=== PATIENT | female | born 1980 ===

== ENCOUNTER 2016-12-22 07:40 | Emergency (ER) | payer BC, MEDICAID, OTHER ==
[2016-12-22] MEDS ORDERED: Albuterol-Ipratrop 3 mg / 0.5 (3 ml) UD ONE (07:52)
[2016-12-22] MEDS ORDERED: Albuterol-Ipratrop 3 mg / 0.5 (3 ml) UD INH STA ×2 (08:12→08:13)
[2016-12-22] MEDS ORDERED: Albuterol-Ipratrop 3 mg / 0.5 (3 ml) UD IH STA (08:12)
[2016-12-22] MEDS ORDERED: Sodium Chloride 0.9% 500 ML IV STA (08:12)
--- NOTE | 2016-12-22 09:04 | ED PDOC ---
HPI: SOB/CHF/COPD Time Seen by Provider: 12/22/16 08:05 Chief Complaint (Nursing): Shortness Of Breath Chief Complaint (Provider): Shortness Of Breath History Per: Patient History/Exam Limitations: no limitations Onset/Duration Of Symptoms: Days Current Symptoms Are (Timing): Still Present Initiating Event: Upper Respiratory Illness Quality: Tightness, "Pain" Exacerbating Factor(s): Coughing Current Respiratory Medications: See Home Med List Severity: Mild Associated Symptoms: denies: Fever, Productive Cough, Light-headedness Additional Complaint(s): Patient is a 36 year old female with a history of asthma, presents to ED for evaluation of SOB with chest pain and back pain for 3 days. Patient reports her cough is productive of brown sputum, using inhaler at home without relief. Patient denies fever, runny nose, congestion or sore throat. Chest pain is like her asthma. No abd pain, nausea, vomit. No headaches, dizziness. No weakness. No leg pain. No hormone tx. No long distance travel. PMD: Dr. Dey. Past Medical History Reviewed: Historical Data, Nursing Documentation, Vital Signs Vital Signs: Last Vital Signs Temp Pulse Resp 20 12/22/16 09:11 BP Pulse Ox 98 12/22/16 09:12 - Medical History PMH: Asthma - Surgical History Surgical History: No Surg Hx - Family History Family History: States: Unknown Family Hx - Living Arrangements Living Arrangements: With Family - Social History Current smoker - smoking cessation education provided: No Alcohol: None Drugs: Denies - Home Medications Home Medications: Ambulatory Orders Medication Instructions Recorded Ibuprofen [Motrin] 600 mg PO Q8 PRN #21 tab 07/27/14 Penicillin V Potassium [Pen-Vee K] 500 mg PO QID #40 tab 07/27/14 Albuterol 0.09 mg IH Q6 PRN #0 ml 10/13/14 Methylprednisolone [Medrol Dose 4 mg PO ASDIR #21 mg 10/13/14 Pack (21 tabs)] Albuterol Sulfate [Proair Hfa] 0.09 mg IH Q6H PRN #2 inh 12/22/16 predniSONE [predniSONE Tab] 20 mg PO BID 5 Days 12/22/16 - Allergies Allergies/Adverse Reactions: Allergies Allergy/AdvReac Type Severity Reaction Status Date / Time No Known Allergies Allergy Verified 01/09/15 18:26 Review of Systems ROS Statement: Except As Marked, All Systems Reviewed And Found Negative Constitutional: Negative for: Fever, Chills Cardiovascular: Positive for: Chest Pain. Negative for: Palpitations, Light Headedness Respiratory: Positive for: Cough, Shortness of Breath, Wheezing Gastrointestinal: Negative for: Nausea, Vomiting Musculoskeletal: Positive for: Back Pain. Negative for: Neck Pain Skin: Negative for: Rash Neurological: Negative for: Weakness, Numbness Physical Exam - Reviewed Nursing Documentation Reviewed: Yes Vital Signs Reviewed: Yes - Physical Exam Appears: Positive for: Non-toxic, Uncomfortable Skin: Positive for: Normal Color, Warm Eye Exam: Positive for: Normal appearance ENT: Positive for: Nasal Congestion. Negative for: Pharyngeal Erythema Neck: Positive for: Normal, Painless ROM, Supple Cardiovascular/Chest: Positive for: Regular Rate, Rhythm. Negative for: Murmur Respiratory: Positive for: Wheezing (diffuse). Negative for: Rales, Rhonchi, Respiratory Distress Back: Positive for: Normal Inspection. Negative for: L CVA Tenderness, R CVA Tenderness Extremity: Positive for: Normal ROM. Negative for: Tenderness, Pedal Edema Neurologic/Psych: Positive for: Alert, Oriented - ECG ECG: Positive for: Interpreted By Me, Viewed By Me ECG Rhythm: Positive for: Normal QRS, Normal ST Segment, Sinus Rhythm O2 Sat by Pulse Oximetry: 98 (RA) Pulse Ox Interpretation: Normal - Radiology X-Ray: Interpreted by Me, Viewed By Me X-Ray Interpretation: No Acute Disease - Progress ED Course And Treament: 915: Stable. AAOx3. Pain free. Tolerated PO. FU with pcp. Texting on phone. In no distress. Wheezes gone. Likely asthma flare. Medical Decision Making Medical Decision Making: Time: 804 Initial impression: Asthma exacerbation Initial plan: -- EKG -- CXR -- Duoneb x3, Solumedrol and NSF Scribe Attestation: Documented by Lexus Alvarez acting as a scribe for Brigido Monroe MD MD Scribe Attestation: All medical record entries made by the Scribe were at my direction and personally dictated by me. I have reviewed the chart and agree that the record accurately reflects my personal performance of the history, physical exam, medical decision making, and the department course for this patient. I have also personally directed, reviewed, and agree with the discharge instructions and disposition. Disposition - Clinical Impression Clinical Impression: Asthma attack - Patient ED Disposition Is Patient to be Admitted: No - Disposition Referrals: [facility] [Outside] - 12/23/16 Disposition: Routine/Home Disposition Time: 09:16 Condition: STABLE Additional Instructions: Return if not better in 3 days. Prescriptions: Albuterol Sulfate [Proair Hfa] 0.09 mg IH Q6H PRN #2 inh PRN Reason: Wheezing predniSONE [predniSONE Tab] 20 mg PO BID 5 Days Instructions: Asthma (ED) Forms: [facility] ([employer]) Print Language: DIVEHI
[2016-12-22 09:28] VITALS: PULSE 99; RESP 24; TEMP 98.6; O2SAT 99
--- NOTE | 2016-12-22 13:25 | RAD ---
HISTORY: dyspnea COMPARISON: 10/13/2014. FINDINGS: LUNGS: No active pulmonary disease. PLEURA: No significant pleural effusion identified, no pneumothorax apparent. CARDIOVASCULAR: No radiographic findings to suggest acute or significant cardiovascular disease. OSSEOUS STRUCTURES: No significant abnormalities. VISUALIZED UPPER ABDOMEN: Normal. OTHER FINDINGS: None. IMPRESSION: No active disease. No significant interval change compared to the prior examination(s). Concordant results with the preliminary interpretation rendered by the emergency department physician procedure.
--- NOTE | 2016-12-22 16:59 | CARD ---
APPROVED REPORT EKG Measurement Heart [id number] <Conclusion> Normal sinus rhythm Normal ECG
== END 2016-12-22 09:28 | disposition home or self-care (01) ==
LOC: H.ER 07:40
DX: J45.901 Unspecified asthma with (acute) exacerbation (principal); R06.00 Dyspnea, unspecified

== ENCOUNTER 2017-01-04 06:39 | Emergency (ER) | payer MEDICAID, BC ==
[2017-01-04] MEDS ORDERED: Albuterol-Ipratrop 3 mg / 0.5 (3 ml) UD ONE (07:30)
[2017-01-04] MEDS ORDERED: Albuterol-Ipratrop 3 mg / 0.5 (3 ml) UD IH STA (07:31)
--- NOTE | 2017-01-04 07:37 | ED PDOC ---
HPI: CCC, URI, Sore Throat Time Seen by Provider: 01/04/17 07:26 Chief Complaint (Nursing): Shortness Of Breath Chief Complaint (Provider): cough History Per: Patient History/Exam Limitations: no limitations Have you had recent travel within the past 21 days to any of the following countries: [place], [place], [place] or [place]?: No Onset/Duration Of Symptoms: Days (x 2 weeks ) Additional Complaint(s): Carmen Simental is a 36 year old female, with a previous medical history of asthma, who presents to the ED with complaints of a cough associated with yellow sputum and shortness of breath ongoing for 2 weeks. She denies any fevers. Patient reports being seen in the ED two weeks ago but states no improvement with home nebulizers. PMD: none provided Past Medical History Reviewed: Historical Data, Nursing Documentation, Vital Signs Vital Signs: Last Vital Signs Temp 99.1 F 01/04/17 06:46 Pulse 107 H 01/04/17 06:46 Resp 22 01/04/17 06:46 BP 83/55 L 01/04/17 06:46 Pulse Ox 99 01/04/17 07:40 - Medical History PMH: Asthma - Family History Family History: States: Unknown Family Hx - Home Medications Home Medications: Ambulatory Orders Medication Instructions Recorded Ibuprofen [Motrin] 600 mg PO Q8 PRN #21 tab 07/27/14 Penicillin V Potassium [Pen-Vee K] 500 mg PO QID #40 tab 07/27/14 Albuterol 0.09 mg IH Q6 PRN #0 ml 10/13/14 Methylprednisolone [Medrol Dose 4 mg PO ASDIR #21 mg 10/13/14 Pack (21 tabs)] Albuterol Sulfate [Proair Hfa] 0.09 mg IH Q6H PRN #2 inh 12/22/16 predniSONE [predniSONE Tab] 20 mg PO BID 5 Days 12/22/16 Albuterol HFA [Ventolin HFA 90 2 puff IH Q4H #1 puff 01/04/17 mcg/actuation (8 g)] Azithromycin [Zithromax] 250 mg PO DAILY #6 tab 01/04/17 predniSONE [predniSONE Tab] 10 mg PO TID #15 tab 01/04/17 - Allergies Allergies/Adverse Reactions: Allergies Allergy/AdvReac Type Severity Reaction Status Date / Time No Known Allergies Allergy Verified 01/04/17 06:46 Review of Systems ROS Statement: Except As Marked, All Systems Reviewed And Found Negative Respiratory: Positive for: Cough, Shortness of Breath, Sputum (yellow ) Physical Exam - Reviewed Nursing Documentation Reviewed: Yes Vital Signs Reviewed: Yes - Physical Exam Appears: Positive for: Well, Non-toxic, No Acute Distress Skin: Positive for: Normal Color, Warm, Dry Cardiovascular/Chest: Positive for: Regular Rate, Rhythm Respiratory: Positive for: Rhonchi (bilaterally. right lung more than left ), Wheezing (expiratory bilaterallt. right more than left ). Negative for: Accessory Muscle Use, Respiratory Distress Neurologic/Psych: Positive for: Alert, Oriented - ECG O2 Sat by Pulse Oximetry: 99 (RA) Pulse Ox Interpretation: Normal Medical Decision Making Medical Decision Making: Initial Impression: Cough Initial Plan: * urine * CXR * solu-medrol 125 mg IV * duo-neb * peak flow pre/post treatment * reevaluation Scribe Attestation: Documented by Agatha Krause, acting as a scribe for Tiburcio Benjamin MD. Provider Scribe Attestation: All medical record entries made by the Scribe were at my direction and personally dictated by me. I have reviewed the chart and agree that the record accurately reflects my personal performance of the history, physical exam, medical decision making, and the department course for this patient. I have also personally directed, reviewed, and agree with the discharge instructions and disposition. Disposition - Clinical Impression Clinical Impression: Bronchitis, Asthma exacerbation - Patient ED Disposition Is Patient to be Admitted: No Counseled Patient/Family Regarding: Studies Performed, Diagnosis, Need For Followup, Rx Given - Disposition Referrals: [facility] [Outside] Disposition: Routine/Home Disposition Time: 11:34 Condition: FAIR Prescriptions: Albuterol HFA [Ventolin HFA 90 mcg/actuation (8 g)] 2 puff IH Q4H #1 puff Azithromycin [Zithromax] 250 mg PO DAILY #6 tab predniSONE [predniSONE Tab] 10 mg PO TID #15 tab Instructions: Acute Bronchitis (ED)
--- NOTE | 2017-01-04 10:59 | RAD ---
HISTORY: cough COMPARISON: Chest x-ray performed 12/22/16 TECHNIQUE: Chest PA and lateral FINDINGS: LUNGS: No focal consolidation. Please note that chest x-ray has limited sensitivity for the detection of pulmonary masses. PLEURA: No significant pleural effusion identified. No definite pneumothorax . CARDIOVASCULAR: The cardiomediastinal silhouette appears within normal limits of size. OSSEOUS STRUCTURES: No acute osseous abnormality identified. VISUALIZED UPPER ABDOMEN: Unremarkable. OTHER FINDINGS: None. IMPRESSION: No focal consolidation, significant pleural effusion, or definite pneumothorax identified.
[2017-01-04 11:58] VITALS: BP 108/62; PULSE 88; RESP 16; TEMP 97.8; O2SAT 97
== END 2017-01-04 11:58 | disposition home or self-care (01) ==
LOC: H.ER 06:39
DX: J20.9 Acute bronchitis, unspecified (principal)